=== PATIENT | male | born 1945 | race Caucasian/White ===

== ENCOUNTER 2017-08-26 16:31 | Emergency (ER) | payer MEDICARE, BC ==
[2017-08-26 16:58] VITALS: BP 130/72; PULSE 97; RESP 17; TEMP 97.2; O2SAT 97
--- NOTE | 2017-08-26 18:25 | PD ---
HPI Chief Complaint: Fall Time Seen by Provider: 17:55 Travel History International Travel<30 days: No Contact w/Intl Traveler<30days: No Traveled to known affect area: No History of Present Illness HPI 71-year-old male presents to the emergency department with complaint of abrasions to his right arm, left arm, and nose after tripping over his walker and falling today. He lives at home with his . He denies hitting his head. He does not know how he got the abrasion on his nose. His left arm is contracted from history of stroke. He says he does not have any complaints. He says he did not want to come here, but he was told to come and be evaluated. He denies anticoagulant therapy. Up-to-date on his tetanus vaccination. Says he did not hit his head or lose consciousness. Denies neck pain or back pain. Has been ambulatory with his walker since after the fall. Denies headache, lightheadedness, dizziness. Denies chest pain, shortness of breath, abdominal pain, nausea, vomiting. No known aggravating or relieving factors. Symptoms are moderate in severity. Has not taken any medications or try any treatments to alleviate his symptoms. His abrasions are wrapped up. His primary care provider is Dr. Liu. Allergies to sulfa and furosemide. History is listed on the medical chart. Has no other medical complaints. No other modifying factors or associated signs and symptoms per [facility] Past Medical History Hx Anticoagulant Therapy: No Arthritis: Yes (GOUT) Blood Disorders: No Anxiety: Yes Cancer: Yes (PROSTATE) High Cholesterol: Yes Chemotherapy: No Cerebrovascular Accident: Yes Diminished Hearing: No Endocrine: No Gastrointestinal Disorders: No Gout: Yes Hypertension: Yes Immune Disorder: No Implanted Vascular Access Dvce: Yes Psychiatric: No Respiratory: Yes (PARTIALLY Paralyzed Diaphragm ) Radiation Therapy: Yes (SEEDS) Seizures: Yes (ANXIETY INDUCED) Past Surgical History Abdominal Surgery: Yes (BOWEL RESECTION/ COLOSTOMY) Body Medical Devices: CERVICAL HARDWARE Genitourinary Surgery: Yes (PROSTATE SEED PLACEMENT 1997) Joint Replacement: No Neurologic Surgery: Yes (CERVICAL FUSION (X2)) Pacemaker: No Other Surgery: Yes (COLON POLYPS REMOVED) Social History Alcohol Use: No (HX OF ETOH ABUSE SINCE 08/2014) Tobacco Use: No Substance Use: No Allergies-Medications (Allergen,Severity, Reaction): Coded Allergies: Sulfa (Sulfonamide Antibiotics) (Unverified Allergy, Severe, Rash, 10/27/16 ) furosemide (Unverified Allergy, Severe, Hives, 10/27/16) Reported Meds & Prescriptions Reported Meds & Active Scripts Active No Active Prescriptions or Reported Medications Review of Systems Except as stated in HPI: all other systems reviewed are Neg Physical Exam Narrative GENERAL: Well-nourished, well-developed patient, in no acute distress SKIN: Warm and dry. Skin tear to right antecubital area. Skin tear to left distal forearm to the ulnar aspect. HEAD: Atraumatic. Normocephalic. Left side of nose with a small, 3 mm cut; minimal swelling just to the area of the cut to the left side of the nose. EYES: Pupils equal and round. No scleral icterus. No injection or drainage. No raccoon eyes. ENT: Mucosa pink and moist. Airway patent. Nasal turbinates appear normal without nasal blood, purulent drainage or septal hematoma. NECK: Trachea midline. CARDIOVASCULAR: Regular rate and rhythm. No murmur appreciated. RESPIRATORY: No accessory muscle use. Breath sounds clear and equal bilaterally. No retractions or tachypnea. GASTROINTESTINAL: Abdomen soft, non-tender, nondistended. Bowel sounds active 4 quadrants. MUSCULOSKELETAL: Left upper extremity is contracted. Right upper extremity patient is able to extend and flex completely. No obvious deformities. No clubbing. No cyanosis. No edema. NEUROLOGICAL: Awake and alert. Oriented 3. No obvious cranial nerve deficits. Normal speech. PSYCHIATRIC: Appropriate mood and affect; insight and judgment normal. Data Data Last Documented VS Vital Signs Date Time Temp Pulse Resp B/P (MAP) Pulse Ox O2 Delivery O2 Flow Rate FiO2 08/26/17 16:58 97.2 97 17 130/72 (91) [address] Brain W/O Iv Contrast(Rout) (08/26/17 ) Elbow, Complete (4 Vws) (08/26/17 18:03) Forearm (2vws) (08/26/17 18:03) Chest, Single Ap (08/26/17 18:07) Acetaminophen (Tylenol) (08/26/17 19:00) Ed Discharge Order (08/26/17 19:22) [facility] Medical Decision Making Medical Screen Exam Complete: Yes Emergency Medical Condition: Yes Medical Record Reviewed: Yes Differential Diagnosis Fall, skin tears, fracture, contusion, head injury Narrative Course 71-year-old male presents for evaluation after tripping over his walker and falling today. He says he did not hit his head or lose consciousness. He does have a small cut to the left side of his nose with minimal edema surrounding the cut. He also has a large skin tear to the right antecubital area and small skin tear to the left distal forearm. He has history of CVA and denies being on anticoagulant therapy. He is alert and oriented. CT head, right elbow x-ray , left forearm x-ray, chest x-ray ordered. Wound care provided and Steri- Strips applied to the skin tears. 1906: Radiology reports conclude: Last 24 hours Impressions Chest X-Ray 08/26/171806 Signed Impressions: CONCLUSION: 1. Elevation left hemidiaphragm, stable. 2. Right 10th rib fracture indeterminant age. 3. Gaseous distention of multiple dilated bowel loops again seen. Free air can not entirely be excluded on this particular study. Radius/Ulna X-Ray 08/26/171802 Signed Impressions: CONCLUSION: Extensive soft tissue swelling without fracture Elbow X-Ray 08/26/171802 Signed Impressions: CONCLUSION: Questionable joint effusion. Occult fracture cannot be excluded but felt to be less likely. Head CT 08/26/17 0000 Signed Impressions: CONCLUSION: 1. Scattered nonspecific white matter changes likely chronic ischemic small ve ssel vasculopathy. 2. No acute intracranial abnormality and no hemorrhage seen. Patient provided a copy of his radiology reports. The patient has no tenderness on palpation of the right rib cage; there is no crepitance; there is no erythema, edema, ecchymosis to the skin. His lungs are clear and equal throughout. He denies any difficulty breathing. He has no abdominal pain. I am not able to elicit any pain or tenderness on palpation to his abdomen, and there is no ecchymosis noted to the abdomen; nondistended. The patient is able to completely extend, flex his right elbow without pain; he is also able to pronate and supinate his entire forearm without pain. I discussed the radiology findings and my exam findings with Dr. Chan and he agrees with my disposition. I discussed reasons for the patient to return to the emergency department with the patient and his neighbor, who picked him up from the hospital, and they verbalized understanding and agreement. Instructed patient to follow up with primary care provider. Patient verbalizes understanding and agreement with treatment plan. Patient is medically cleared and stable for discharge. Discussed reasons to return to the emergency department. Patient agrees with treatment plan. The patients vital signs are stable and the patient is stable for outpatient follow-up and treatment. Patient discharged home, stable and in no acute distress. Diagnosis Primary Impression: Fall Qualified Codes: W19.XXXA - Unspecified fall, initial encounter Additional Impressions: Skin tear of right upper extremity Skin tear of left forearm without complication Qualified Codes: S51.812A - Laceration without foreign body of left forearm, initial encounter Cut of face Referrals: Primary Care Physician Patient Instructions: Acute Wound Care (DC), Fall Prevention for Older Adults ( ED), General Instructions, How to Choose and Use a Walker (GEN), Skin Tear (ED) Additional Instructions: Tylenol as directed and as needed for pain Keep wounds clean and dry Change bandage once or twice daily, or as needed Topical antibiotic ointment as directed and as needed for wound care Follow-up with primary care provider in 1-2 days Return to the emergency department immediately with worsening of symptoms, particularly with symptoms as discussed Med/Other Pt SpecificInfo: No Change to Meds, No Meds Exist/No RX given Scripts No Active Prescriptions or Reported Meds Disposition: 01 DISCHARGE HOME Condition: Stable Althea Serrano Aug 26, 2017 18:25
--- NOTE | 2017-08-26 18:52 | RADRPT ---
EXAM DATE: 08/26/2017 6:40 PM EDT AGE/SEX: 71 years / Male INDICATIONS: Left forearm pain and small lacerations post fall today. CLINICAL DATA: This is the patient's initial encounter. Patient reports that signs and symptoms have been present for 1 day and indicates a pain score of 6/10. MEDICAL/SURGICAL HISTORY: Stroke. None. COMPARISON: No prior exams available for comparison. FINDINGS: Views of the left forearm demonstrates extensive soft tissue swelling at the elbow. No definite fract ure. There is osteopenia. Vascular calcifications. CONCLUSION: Extensive soft tissue swelling without fracture Electronically signed by: Gildardo Patel MD 08/26/2017 6:51 PM EDT
--- NOTE | 2017-08-26 18:54 | RADRPT ---
EXAM DATE: 08/26/2017 6:39 PM EDT AGE/SEX: 71 years / Male INDICATIONS: Right elbow pain and small lacerations post fall today. CLINICAL DATA: This is the patient's initial encounter. Patient reports that signs and symptoms have been present for 1 day and indicates a pain score of 5/10. MEDICAL/SURGICAL HISTORY: Stroke. None. COMPARISON: No prior exams available for comparison. FINDINGS: Views of the right elbow obtained. There are degenerative changes. Soft tissue swelling. Questionable joint effusion. No definite fracture. CONCLUSION: Questionable joint effusion. Occult fracture cannot be excluded but felt to be less likely. Electronically signed by: Gildardo Patel MD 08/26/2017 6:52 PM EDT
--- NOTE | 2017-08-26 18:57 | RADRPT ---
EXAM DATE: 08/26/2017 6:43 PM EDT AGE/SEX: 71 years / Male INDICATIONS: Trauma, fall. CLINICAL DATA: This is the patient's initial encounter. Patient reports that signs and symptoms have been present for 1 day and indicates a pain score of 0/10. MEDICAL/SURGICAL HISTORY: Cerebrovascular disease. Hypertension. Prostate cancer, seizures. . cer vical fusion RADIATION DOSE: 56.35 CTDI (mGy) COMPARISON: [facility] – [place], CT BRAIN W/O CONTRAST, 09/03/2014. . TECHNIQUE: CT of the head without contrast. Using automated exposure control and adjustment of the mA and/or kV according to patient size, radiation dose was kept as low as reasonably achievable to ob tain optimal diagnostic quality images. FINDINGS: Cerebrum: The ventricles are normal for age. Areas of low-density throughout the white matter. No e vidence of midline shift, mass lesion, hemorrhage or acute infarction. No extraaxial fluid collectio ns are seen. Posterior Fossa: The cerebellum and brainstem are intact. The 4th ventricle is midline. The cerebe llopontine angle is unremarkable. Extracranial: The visualized portion of the orbits is intact. Skull: The calvaria is intact. No evidence of skull fracture. CONCLUSION: 1. Scattered nonspecific white matter changes likely chronic ischemic small vessel vasculopathy. 2. No acute intracranial abnormality and no hemorrhage seen. Electronically signed by: Gildardo Patel MD 08/26/2017 6:56 PM EDT
--- NOTE | 2017-08-26 18:59 | RADRPT ---
EXAM DATE: 08/26/2017 6:42 PM EDT AGE/SEX: 71 years / Male INDICATIONS: Chest discomfort post fall today. CLINICAL DATA: This is the patient's initial encounter. Patient reports that signs and symptoms have been present for 1 day and indicates a pain score of 0/10. MEDICAL/SURGICAL HISTORY: Stroke. Hypertension. Carcinoma, prostatic. None. COMPARISON: [facility] – [place], CHEST SINGLE AP, 09/02/2014. . FINDINGS: A single AP view of the chest demonstrates no evidence of mass, infiltrate or effusion. Elevation lef t hemidiaphragm with gaseous distention of the abdomen including dilated bowel loops. The cardiomedi astinal contours are unremarkable. Right 10th rib fracture, indeterminate age. CONCLUSION: 1. Elevation left hemidiaphragm, stable. 2. Right 10th rib fracture indeterminant age. 3. Gaseous distention of multiple dilated bowel loops again seen. Free air cannot entirely be exclud ed on this particular study. Electronically signed by: Gildardo Patel MD 08/26/2017 6:58 PM EDT
[2017-08-26] MEDS ORDERED: ACETAMINOPHEN 325 MG TAB PO ONE (19:00)
== END 2017-08-27 01:58 | disposition home or self-care (01) ==
LOC: NEPK 16:31
DX: S51.011A Laceration without foreign body of right elbow, initial encounter (principal); S51.812A Laceration without foreign body of left forearm, initial encounter; S01.21XA Laceration without foreign body of nose, initial encounter; W01.0XXA Fall on same level from slipping, tripping and stumbling without subsequent striking against object, initial encounter; I10 Essential (primary) hypertension; E78.00 Pure hypercholesterolemia, unspecified; Z87.39 Personal history of other diseases of the musculoskeletal system and connective tissue; Z86.59 Personal history of other mental and behavioral disorders; Z86.79 Personal history of other diseases of the circulatory system; Z87.09 Personal history of other diseases of the respiratory system
CPT/HCPCS: 70450; 71045; 73080; 73090